=== PATIENT | female | born 1995 | race Two or more races ===

== ENCOUNTER 2020-04-27 16:21 | Emergency (ER) | payer MEDICAID ==
[~2020-04-27] VITALS: Ht 170.2 cm; Wt 74.0 kg
[2020-04-27 18:06] LABS: CLARITY URINE TURBID (CLEAR); COLOR URINE YELLOW (YELLOW); KETONES URINE TRACE (NEGATIVE); LEUKOCYTE ESTERASE URINE 2+ (NEGATIVE); NITRITE URINE NEGATIVE (NEGATIVE); OCCULT BLOOD URINE TRACE (NEGATIVE); PH URINE 5.5 (4.5-8.0); PROTEIN URINE TRACE (NEGATIVE); SPECIFIC GRAVITY URINE 1.036 (1.005-1.030)
[2020-04-27 18:07] LABS: BASOPHILS % 0.5 % (0.0-2.0); EOSINOPHILS % 1.3 % (0.0-5.0); HEMATOCRIT. 40.5 % (36.0-48.0); HEMOGLOBIN. 13.6 g/dL (12.0-16.0); LYMPHOCYTES % 21.7 % (20.0-50.0); MEAN CORPUSCULAR HEMOGLOBIN 29.2 pg (28.0-32.0); MEAN CORPUSCULAR VOLUME 87.1 fL (81.0-99.0); MEAN PLATELET VOLUME 8.2 fl (7.4-10.4); MONOCYTES % 7.3 % (2.0-8.0); NEUTROPHILS % 69.2 % (40.0-76.0); PLATELET 290 x1000/uL (130-400); RED BLOOD CELL COUNT 4.65 mill/uL (4.2-5.4); RED CELL DISTRIBUTION WIDTH 13.4 % (11.6-14.6)
[2020-04-27 18:10] LABS: CHLORIDE 106 mEq/L (98-107)
[2020-04-27 18:14] LABS: HCG SCREEN NEGATIVE
[2020-04-27 18:17] LABS: ETHANOL BLOOD < 10 mg/dL
[2020-04-27 18:26] LABS: *AMPHETAMINES SCREEN URINE NEGATIVE (NEGATIVE); *BARBITURATES SCREEN URINE NEGATIVE (NEGATIVE); *BENZODIAZEPINES SCREEN URINE NEGATIVE (NEGATIVE); *COCAINE SCREEN URINE NEGATIVE (NEGATIVE); METHADONE URINE SCREEN NEGATIVE (NEGATIVE)
[2020-04-27 18:27] LABS: CANNABINOID URINE SCREEN NEGATIVE (NEGATIVE); OPIATES URINE SCREEN NEGATIVE (NEGATIVE); PHENCYCLIDINE URINE SCREEN NEGATIVE (NEGATIVE)
[2020-04-27] MEDS: NITROFURANTOIN 100MG M/M CAPSULE PO SCH (21:52)
[2020-04-28] MEDS ORDERED: ACETAMINOPHEN 500MG TABLET PO ONE (00:15)
[2020-04-28] MEDS: NITROFURANTOIN 100MG M/M CAPSULE PO SCH ×2 (09:28→21:00)
[2020-04-29] MEDS ORDERED: ACETAMINOPHEN 500MG TABLET PO ONE (09:45)
[2020-04-29] MEDS: NITROFURANTOIN 100MG M/M CAPSULE PO SCH (09:49)
[2020-04-29 10:30] VITALS: BP 102/55
== END 2020-04-29 11:34 | disposition left against medical advice (07) ==
LOC: ER 16:21
DX: R45.851 Suicidal ideations (principal); I49.9 Cardiac arrhythmia, unspecified; Z20.828 Contact with and (suspected) exposure to other viral communicable diseases
CPT/HCPCS: 36415; 80053; 80305; 80307; 80320; 80329; 81003; 81025; 84703; 85025; 93005; 99285; G0480